=== PATIENT | male | born 1985 | race Caucasian/White ===

== ENCOUNTER 2018-06-30 12:51 | Emergency (ER) | payer BC ==
[~2018-06-30] VITALS: Ht 177.8 cm; Wt 83.9 kg
[2018-06-30 13:15] VITALS: BP 119/85
[2018-06-30] MEDS: KETOROLAC TROMETH 60MG/2ML VIAL IM ONE (14:31)
== END 2018-06-30 14:47 | disposition home or self-care (01) ==
LOC: ER 12:51
DX: S39.012A Strain of muscle, fascia and tendon of lower back, initial encounter (principal); X50.0XXA Overexertion from strenuous movement or load, initial encounter; Y93.89 Activity, other specified; Y99.8 Other external cause status; Y92.89 Other specified places as the place of occurrence of the external cause
CPT/HCPCS: 96372; 99283; J1885

== ENCOUNTER 2018-07-04 11:42 | Emergency (ER) | payer BC ==
[~2018-07-04] VITALS: Ht 177.8 cm; Wt 83.9 kg
[2018-07-04 12:26] VITALS: BP 118/55
[2018-07-04] MEDS ORDERED: KETOROLAC TROMETH 60MG/2ML VIAL IM ONE (13:45)
== END 2018-07-04 15:05 | disposition home or self-care (01) ==
LOC: ER 11:42
DX: S39.012A Strain of muscle, fascia and tendon of lower back, initial encounter (principal); X50.1XXA Overexertion from prolonged static or awkward postures, initial encounter; Y93.89 Activity, other specified; Y99.8 Other external cause status; Y92.89 Other specified places as the place of occurrence of the external cause
CPT/HCPCS: 72100; 96372; 99283; J1885

== ENCOUNTER 2019-11-03 21:13 | Emergency (ER) | payer BC, MEDICAID ==
[~2019-11-03] VITALS: Ht 175.3 cm; Wt 88.5 kg
[2019-11-03 21:35] VITALS: BP 150/84
[2019-11-03] MEDS ORDERED: KETOROLAC TROMETH 60MG/2ML VIAL IM ONE (22:30)
== END 2019-11-03 22:54 | disposition home or self-care (01) ==
LOC: ER 21:15
DX: S16.1XXA Strain of muscle, fascia and tendon at neck level, initial encounter (principal); R51 Headache; M62.838 Other muscle spasm; X58.XXXA Exposure to other specified factors, initial encounter; Y93.89 Activity, other specified; Y92.89 Other specified places as the place of occurrence of the external cause; Y99.8 Other external cause status
CPT/HCPCS: 72040; 96372; 99283; J1885

== ENCOUNTER 2020-03-24 05:17 | Emergency (ER) | payer BC, MEDICAID ==
[~2020-03-24] VITALS: Ht 176.5 cm; Wt 68.0 kg
[2020-03-24] MEDS ORDERED: KETOROLAC TROMETH 60MG/2ML VIAL IM ONE (08:45)
[2020-03-24 09:01] LABS: Basophils # (auto) 0.1 10 ^3/uL (0-0.2); Basophils % (auto) 0.6 % (0.0-2.0); Eosinophils # (auto) 0.2 10 ^3/uL (0-0.8); Hematocrit 47.4 % (41.0-53.0); Hemoglobin 16.4 g/dL (13.5-17.5); Lymphocytes # (auto) 3.1 10 ^3/uL (0.4-5.4); Lymphocytes % (auto) 28.2 % (10.0-50.0); Mean Corpuscular Hemoglobin 30.9 pg (28.0-32.0); Mean Corpuscular Hgb Conc. 34.6 g/dL (32.0-36.0); Mean Corpuscular Volume 89.4 fL (80.0-100.0); Monocytes # (auto) 0.8 10 ^3/uL (0-1.3); Monocytes % (auto) 7.3 % (0.0-12.0); Neutrophils # (auto) 6.9 10 ^3/uL (1.6-8.6); Neutrophils % (auto) 61.9 % (37.0-80.0); Nucleated Red Blood Cells % 0.1 %; Platelet Count (auto) 334 10^3/uL (140-450); White Blood Cell 11.1 10^3/uL (4.4-10.8)
[2020-03-24 09:04] VITALS: BP 142/97
[2020-03-24 09:10] LABS: Potassium 3.7 mmol/L (3.5-5.1)
[2020-03-24 09:16] LABS: BUN/Creatinine Ratio 16.7; Bilirubin, Total 0.5 mg/dL (0.2-1.0)
== END 2020-03-24 10:25 | disposition home or self-care (01) ==
LOC: ER 05:17
DX: R51 Headache (principal); M62.838 Other muscle spasm
CPT/HCPCS: 36415; 70450; 80053; 85025; 96372; 99284; J1885